=== PATIENT | male | born 1965 | race African-American/Black ===

== ENCOUNTER 2019-04-22 23:19 | Emergency (ER) | payer SELFPAY ==
[~2019-04-22] VITALS: Ht 172.7 cm; Wt 98.0 kg
[~2019-04-22 23:19] MED LIST: AMLODIPINE; GLIMEPIRIDE; HYDROCHLOROTHIAZIDE; METFORMIN; SIMVASTATIN
[2019-04-23] MEDS ORDERED: KETOROLAC 60MG/2ML VIAL IM STA (01:09)
[2019-04-23 04:30] VITALS: BP 165/72
== END 2019-04-23 04:31 | disposition home or self-care (01) ==
LOC: ER 23:19
DX: M79.671 Pain in right foot (principal); M25.571 Pain in right ankle and joints of right foot; E11.9 Type 2 diabetes mellitus without complications; F17.200 Nicotine dependence, unspecified, uncomplicated; Z88.5 Allergy status to narcotic agent
CPT/HCPCS: 73610; 73630; 96372; 99283; J1885

== ENCOUNTER 2022-08-04 02:21 | Emergency (ER) | payer MEDICAID ==
[~2022-08-04] VITALS: Ht 170.2 cm; Wt 98.5 kg
[~2022-08-04 02:21] MED LIST changes: +AMLO10TA4 PO; +ASPI-1497 PO; +ATOR40TA70 PO; +GLIM2TAB30 PO; +LOSA50TA41 PO; +METF-416 PO
[2022-08-04] MEDS ORDERED: IBUPROFEN 600MG TABLET PO ONE (04:30)
[2022-08-04] MEDS ORDERED: TRAMADOL 50MG TABLET PO ONE (04:30)
[2022-08-04 05:04] VITALS: BP 182/88
[2022-08-04] MEDS ORDERED: IBUP-2030 MT (05:54)
[2022-08-04] MEDS ORDERED: PENI500T MT (05:54)
== END 2022-08-04 06:02 | disposition home or self-care (01) ==
LOC: ER 02:45
DX: K05.10 Chronic gingivitis, plaque induced (principal); K02.9 Dental caries, unspecified; I10 Essential (primary) hypertension; E11.9 Type 2 diabetes mellitus without complications; Z79.899 Other long term (current) drug therapy; Z79.84 Long term (current) use of oral hypoglycemic drugs
CPT/HCPCS: 99283

== ENCOUNTER 2025-01-06 00:11 | Emergency (ER) | payer MEDICAID ==
[~2025-01-06] VITALS: Ht 170.2 cm; Wt 100.0 kg
[~2025-01-06 00:11] MED LIST changes: +IBUP-2030 MT; +PENI500T MT
[2025-01-06 00:27] VITALS: O2SAT 99
[2025-01-06] MEDS: ACETAMINOPHEN 650MG/20.3ML UDC PO ONE (01:08)
[2025-01-06 01:10] VITALS: BP 173/73; PULSE 84; RESP 20; TEMP 36.6; O2SAT 99
== END 2025-01-06 01:42 | disposition home or self-care (01) ==
LOC: ER 00:11
DX: J02.8 Acute pharyngitis due to other specified organisms (principal); B97.89 Other viral agents as the cause of diseases classified elsewhere; E11.9 Type 2 diabetes mellitus without complications; F10.90 Alcohol use, unspecified, uncomplicated; I10 Essential (primary) hypertension; Z79.82 Long term (current) use of aspirin; Z79.84 Long term (current) use of oral hypoglycemic drugs; Z79.899 Other long term (current) drug therapy; Y90.9 Presence of alcohol in blood, level not specified
CPT/HCPCS: 87070; 87430; 99283

== ENCOUNTER 2025-03-29 11:50 | Emergency (ER) | payer MEDICAID ==
[~2025-03-29] VITALS: Ht 170.2 cm; Wt 92.0 kg
[~2025-03-29 11:50] MED LIST changes: +AMLO-905 PO; -AMLO10TA4 PO
[2025-03-29 11:54] VITALS: O2SAT 97
[2025-03-29 12:48] LABS: CHLORIDE 104 mEq/L (98-107); POTASSIUM 3.3 mEq/L (3.5-5.1); SODIUM 137 mEq/L (136-145)
[2025-03-29 12:49] LABS: CARBON DIOXIDE 26 mEq/L (21-32)
[2025-03-29 12:50] LABS: CALCIUM 8.7 mg/dL (8.7-10.4)
[2025-03-29] MEDS: MORPHINE SULFATE 4 MG/ML INJ (FOR IV/IM USE) IV STA (12:52)
[2025-03-29] MEDS: AMPICILLIN SOD/SULBACTAM NA 3 G in SODIUM CHLORIDE 0.9% 100 ML IV STA (12:53)
[2025-03-29 12:54] LABS: CREATININE 1.1 mg/dL (0.6-1.3)
[2025-03-29 12:55] LABS: GLUCOSE 310 mg/dL (70-105); UREA NITROGEN BLOOD 17 mg/dL (9-23)
[2025-03-29 13:04] LABS: BASOPHILS % 0.7 % (0.0-2.0); EOSINOPHILS % 2.1 % (0.0-5.0); HEMATOCRIT. 40.7 % (42.0-52.0); HEMOGLOBIN. 13.7 g/dL (14.0-18.0); MEAN CORPUSCULAR HEMOGLOBIN 32.5 pg (28.0-32.0); MEAN CORPUSCULAR HGB CONC 33.8 g/dL (31.0-37.0); MEAN CORPUSCULAR VOLUME 96.2 fL (80.0-94.0); MEAN PLATELET VOLUME 9.3 fl (7.4-10.4); MONOCYTES % 10.3 % (2.0-8.0); NEUTROPHILS % 74.9 % (40.0-76.0); PLATELET 200 x1000/uL (130-400); RED BLOOD CELL COUNT 4.23 mill/uL (4.7-6.1); RED CELL DISTRIBUTION WIDTH 14.4 % (11.6-14.6); WHITE BLOOD COUNT 8.3 x1000/uL (4.5-11.0)
[2025-03-29] MEDS ORDERED: AMOX1TAB16 MT (13:54)
[2025-03-29] MEDS ORDERED: HYDR-4001 MT (13:54)
[2025-03-29 14:12] VITALS: BP 181/76; PULSE 96; RESP 14; TEMP 37.1; O2SAT 98
== END 2025-03-29 14:15 | disposition home or self-care (01) ==
LOC: ER 11:50
DX: K04.7 Periapical abscess without sinus (principal); E11.9 Type 2 diabetes mellitus without complications; I10 Essential (primary) hypertension; Z68.31 Body mass index [BMI] 31.0-31.9, adult; Z79.899 Other long term (current) drug therapy; Z79.82 Long term (current) use of aspirin
CPT/HCPCS: 99284; 96365; 96375; 80048; 85025; 36415; J0295; J2270; J7050

== ENCOUNTER 2025-09-29 00:07 | Emergency (ER) | payer MEDICAID ==
[~2025-09-29] VITALS: Ht 170.2 cm; Wt 83.0 kg
[~2025-09-29 00:07] MED LIST changes: -AMLO-905 PO; -AMLODIPINE; +ASPI-1406 MT; -ASPI-1497 PO; +BUPR-113 PO; +BUSP15TA3 PO; +CLON0.1T PO; +CLOP-31 MT; +COR6 PO; +EMPA10TA PO; -GLIM2TAB30 PO; -GLIMEPIRIDE; +HYDR100T31 PO; -HYDROCHLOROTHIAZIDE; -IBUP-2030 MT; +ISOS30TA91 PO; +LOSA25TA26 PO; -LOSA50TA41 PO; -METF-416 PO; -METFORMIN; -PENI500T MT; -SIMVASTATIN
[2025-09-29 00:11] VITALS: TEMP 97.4; O2SAT 100
[2025-09-29 00:45] VITALS: BP 194/85; PULSE 82; RESP 18
[2025-09-29] MEDS: HYDROCODONE/ACETAMINOPHEN 5/325MG TABLET PO ONE (00:45)
[2025-09-29] MEDS ORDERED: AMOX-494 MT (00:47)
[2025-09-29] MEDS ORDERED: HYDR-4001 MT (00:47)
== END 2025-09-29 00:58 | disposition home or self-care (01) ==
LOC: ER 00:07
DX: K08.89 Other specified disorders of teeth and supporting structures (principal); E11.9 Type 2 diabetes mellitus without complications; E78.00 Pure hypercholesterolemia, unspecified; I10 Essential (primary) hypertension; Z79.02 Long term (current) use of antithrombotics/antiplatelets; Z79.82 Long term (current) use of aspirin; Z79.84 Long term (current) use of oral hypoglycemic drugs; Z79.899 Other long term (current) drug therapy; Z95.5 Presence of coronary angioplasty implant and graft
CPT/HCPCS: 99283